=== PATIENT | male | born 1970 | race Caucasian/White ===

== ENCOUNTER 2018-04-10 13:36 | Emergency (ER) | payer SELFPAY ==
[~2018-04-10] VITALS: Ht 185.4 cm; Wt 113.6 kg
[2018-04-10] MEDS ORDERED: SODIUM CHLORIDE 0.9% 1,000 ML IV ONE (14:22)
[2018-04-10] MEDS ORDERED: ONDANSETRON 2MG/ML, 2ML ONE ×2 (14:27→16:47)
[2018-04-10] MEDS ORDERED: PLEASE ENTER ALLERGIES MC SCH (14:29)
[2018-04-10] MEDS ORDERED: SODIUM CHLORIDE FLUSH 10ML SYR IVF ONE (14:30)
[2018-04-10] MEDS ORDERED: SODIUM CHLORIDE 0.9% 1,000ML IVBOLUS ONE (14:30)
[2018-04-10] MEDS ORDERED: ONDANSETRON 2MG/ML, 2ML IVPush ONE ×2 (14:30→16:30)
--- NOTE | 2018-04-10 14:40 | NUR ---
THIS IS A 47 YO MALE WHO PRESENTS TO THE ER C/O DIZZINESS, N/V/D AND EPIGASTRIC PAIN X 12 HORUS. PT ALSO CONCERNED ABOUT A "BUMP" HE STATES IS ON HIS LUQ. NO BUMP PALPATED BY RN OR CHRIS HA. PT AO X 4. PT REPORTS ONE EPISODE OF N/V/D. PT IS BEING FOLLOWED BY A PCP AND HAS BEEN REFERRED TO GI. PT HAS NOT HAD A CHANCE TO F/U WITH GI MD. PT GIVES VARYING ACCOUNTS OF HOW LONG SYMPTOMS HAVE LASTED, BUT IT APPEARS THEY HAVE BEEN WORSE FOR THE LAST 12 HOURS. PT ON CONT BP, CARDIAC AND O2 MONITORS. PT AWARE WE ARE WAITING FOR LAB/IMAGING RESULTS. PT MEDICATED ORDERED FOR NAUSEA. CALL LIGHT WITHIN REACH. WILL CONT TO MONITOR PT.
[2018-04-10 14:47] LABS: MEAN CORPUSCULAR HEMOGLOBIN 29.3 pg (27.5-34.5); MEAN CORPUSCULAR HGB CONC 33.8 g/dL (33.2-36.2); MEAN CORPUSCULAR VOLUME 86.6 fL (81-97); MEAN PLATELET VOLUME 9.7 fL (7.4-10.4); PLATELET COUNT 245 x10^3/uL (130-400); RED BLOOD COUNT 5.69 x10^6/uL (4.38-5.82); RED CELL DISTRIBUTION WIDTH 12.6 % (9.4-14.8)
[2018-04-10 14:49] LABS: ALANINE AMINOTRANSFERASE 40 U/L (12-78); ALBUMIN 4.8 g/dL (3.4-5.0); ANION GAP 7 mmol/L (5-15); CALCIUM 9.5 mg/dL (8.5-10.1); CHLORIDE 106 mmol/L (98-107); CREATININE 1.11 mg/dL (0.7-1.3)
[2018-04-10 14:54] LABS: ALKALINE PHOSPHATASE 96 U/L (45-117); BILIRUBIN,TOTAL 2.1 mg/dL (0.2-1.0); TOTAL PROTEIN 8.4 g/dL (6.4-8.2); TROPONIN I < 0.015 ng/mL (0.000-0.045)
[2018-04-10 15:11] LABS: BASOPHILS # (AUTO) 0.02 x10^3/uL (0-0.1); BASOPHILS % (AUTO) 0 % (0-1); EOSINOPHILS % (AUTO) 0 % (1-7); LYMPHOCYTES # (AUTO) 0.37 x10^3/uL (1-3.4); LYMPHOCYTES % (AUTO) 2 % (22-44); MD SCAN; MONOCYTES % (AUTO) 3 % (2-9); NEUTROPHILS # (AUTO) 14.31 x10^3/uL (1.8-6.8); NEUTROPHILS % (AUTO) 95 % (42-75)
--- NOTE | 2018-04-10 15:15 | NUR ---
PT UP TO RESTROOM. STEADY UPON AMBULATION. NAD NOTED. SKIN PWD. RESP EVEN AND EQUAL. PT DENIES PAIN/NEEDS AT THIS TIME. PT ON CONT BP AND O2 MONITORS. CALL LIGHT WITHIN REACH. WILL CONT TO MONITOR PT.
[2018-04-10 15:43] LABS: MICROSCOPIC INDICATED
[2018-04-10 15:48] LABS: CULTURE INDICATED? NO
--- NOTE | 2018-04-10 16:23 | NUR ---
PT CURRENTLY RESTING ON GURNEY. NAD NOTED. SKIN PWD. RESP EVEN AND EQAUL. PT C/O CONT NAUSEA. DISCUSSED WITH CHRIS HA AND WILL RE-MEDICATE PT ORDERED. US AT BEDSIDE. PT ON CONT BP, CARDIAC AND O2 MONITORS. WILL CONT TO MONITOR PT.
--- NOTE | 2018-04-10 16:50 | NUR ---
BREAK RN: RN in to medicate pt for nausea, pt c/o heart burn. made aware, this RN to give GI Cocktail.
[2018-04-10] MEDS ORDERED: MAALOX/HYOSCYAMINE/LIDOCAINE 45 ML BTL ONE (16:58)
--- NOTE | 2018-04-10 16:58 | NUR ---
BREAK RN: Dr. Dove at bedside to discuss ED findings and POC.
[2018-04-10] MEDS ORDERED: MAALOX/HYOSCYAMINE/LIDOCAINE 45 ML BTL PO ONE (17:00)
--- NOTE | 2018-04-10 17:01 | NUR ---
Pt medicated per MAR.
--- NOTE | 2018-04-10 17:10 | NUR ---
BREAK RN: Pt reports improvement in heartburn symptoms after GI Cocktail admin.
[2018-04-10 17:40] VITALS: BP 122/72
--- NOTE | 2018-04-10 17:50 | NUR ---
PT PROVIDED WITH WATER. PT TOLERATED WATER WELL. PT RESTING ON GURNEY. PROVIDED WITH WARM BLANKET. PT AWARE WE ARE WAITING FOR RECHECK BY CHRIS HA. PT DENIES OTHER NEEDS AT THIS TIME. CALL LIGHT WITHIN REACH. WILL CONT TO MONITOR PT.
== END 2018-04-10 18:39 | disposition home or self-care (01) ==
LOC: ED 14:55
DX: K52.9 Noninfective gastroenteritis and colitis, unspecified (principal); K76.0 Fatty (change of) liver, not elsewhere classified; E83.01 Wilson's disease
CPT/HCPCS: 36415; 76700; 80053; 81001; 83690; 84484; 85025; 93005; 96361; 96374; 96376; 99284; J2405; J7030